=== PATIENT | male | born 1940 | race Caucasian/White ===

== ENCOUNTER 2016-10-28 09:30 | Emergency (ER) | payer OTHER ==
[2016-10-28] MEDS ORDERED: HYDROmorphONE/DILAUDID 1 MG/ML SYR IVP ONE (09:53)
[2016-10-28] MEDS ORDERED: ONDANSETRON 4 MG/2 ML VIAL IVP ONE (09:53)
[2016-10-28] MEDS ORDERED: NS 1,000 ML IV ONE (09:53)
--- NOTE | 2016-10-28 09:57 | EDPHY ---
H & P Stated Complaint: l flank pain Time Seen by Provider: 10/28/16 09:43 HPI/ROS: CHIEF COMPLAINT: Left flank pain HISTORY OF PRESENT ILLNESS: Patient is a 76-year-old man who comes to the emergency department complaining of left flank pain. He states that it has been intermittent for the last week. He has noticed some dark colored urination as well as testicle pain. 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 No nausea vomiting or abdominal pain. No diarrhea. No chest pain or shortness of breath. He thinks that he can feel a mass in the area. REVIEW OF SYSTEMS: Constitutional: denies: chills, fever, recent illness, recent injury EENTM: denies: blurred vision, double vision, nose congestion Respiratory: denies: cough, shortness of breath Cardiac: denies: chest pain, irregular heart rate, lightheadedness, palpitations Gastrointestinal/Abdominal: denies: abdominal pain, diarrhea, nausea, vomiting, blood streaked stools Genitourinary: denies: dysuria, frequency, hematuria, pain Musculoskeletal: See HPI Skin: denies: lesions, rash, jaundice, bruising Neurological: denies: headache, numbness, paresthesia, tingling, dizziness, weakness Hematologic/Lymphatic: denies: blood clots, easy bleeding, easy bruising Immunologic/allergic: denies: HIV/AIDS, transplant EXAM: GENERAL: Well-appearing, well-nourished and in no acute distress. HEAD: Atraumatic, normocephalic. EYES: Pupils equal round and reactive to light, extraocular movements intact, sclera anicteric, conjunctiva are normal. ENT: TMs normal, nares patent, oropharynx clear without exudates. Moist mucous membranes. NECK: Normal range of motion, supple without lymphadenopathy or JVD. LUNGS: Breath sounds clear to auscultation bilaterally and equal. No wheezes rales or rhonchi. HEART: Regular rate and rhythm without murmurs, rubs or gallops. ABDOMEN: Soft, nontender, normoactive bowel sounds. No guarding, no rebound. No masses appreciated. BACK: Mild CVA tenderness, no palpable masses. no spinal tenderness, step-offs or deformities EXTREMITIES: Normal range of motion, no pitting or edema. No clubbing or cyanosis. NEUROLOGICAL: Cranial nerves II through XII grossly intact. Normal speech, normal gait. 5/5 strength, normal movement in all extremities, normal sensation PSYCH: Normal mood, normal affect. SKIN: Warm, dry, normal turgor, no visible rashes or lesions. Source: Patient Exam Limitations: No limitations - Personal History Current Tetanus/Diphtheria Vaccine: Unsure Tetanus Vaccine Date: < 10 years - Medical/Surgical History Hx Asthma: No Hx Chronic Respiratory Disease: No Hx Diabetes: No Hx Cardiac Disease: Yes Hx Renal Disease: No Hx Cirrhosis: No Hx Alcoholism: No Hx HIV/AIDS: No Hx Splenectomy or Spleen Trauma: No Other PMH: murmur, R leg DVT, PEs Bilateral, CABG, AORTIC VALVE REPLACEMENT/l inguinal hernia - Family History Significant Family History: Hypertension - Social History Smoking Status: Never smoked Alcohol Use: Sober Drug Use: None Constitutional: Initial Vital Signs Temperature (C) 36.4 C 10/28/16 09:36 Heart Rate 78 10/28/16 09:36 Respiratory Rate 17 10/28/16 09:36 Blood Pressure 120/93 H 10/28/16 09:36 O2 Sat (%) 94 10/28/16 09:36 O2 Delivery Mode Room Air Allergies/Adverse Reactions: [id number] Reductase Inhibitor Allergy (Verified 10/28/16 09:33) statins Allergy (Uncoded 11/20/14 11:06) Home Medications: Medication Instructions Recorded Aspirin [Aspirin 81mg (*)] 81 mg PO DAILY 11/20/14 Omeprazole [Prilosec 20 mg] 20 mg PO DAILY 11/20/14 Warfarin Sodium [Coumadin 4MG (RX)] 4 mg PO Q2D 11/20/14 Warfarin Sodium [Coumadin 5MG (*)] 5 mg PO Q2D 11/20/14 Atorvastatin Calcium 01/15/16 Metoprolol Succinate 01/15/16 ALENDRONATE SODIUM 10/28/16 Tamsulosin HCl [Flomax] 0.4 mg PO DAILY #10 cap 10/28/16 Medical Decision Making - Diagnostics Imaging: Results: CT scan of the abdomen and pelvis was obtained. The results of the study are positive for 4 mm left UVJ stone. The study was read by Dr. Tsai. I viewed the images myself on the PACS system. ED Course/Re-evaluation: 12:00 p.m. the patient refused pain medication. He states that Tylenol is working well for him. We discussed the CT results and he is reassured. He is concerned for cancer. He declines further workup or testing at this time is eager to go home. We discussed precautions and indications for returning. His INR was slightly elevated. Differential Diagnosis: Partial list of the Differential diagnosis considered include but were not limited to; kidney stone, urinary tract infection and although unlikely based on the history and physical exam, I also considered aneurysm, dissection, tumor. I discussed these differential diagnoses and the plan with the patient as well as the usual and expected course. The patient understands that the diagnosis is provisional and that in medicine we are not always correct and that further workup is often warranted. Usual and customary warnings were given. All of the patient's questions were answered. The patient was instructed to return to the emergency department should the symptoms at all worsen or return, otherwise to followup with the physician as we discussed. - Data Points Laboratory Results: Laboratory Results 10/28/16 10:00 10/28/16 10:00 10/28/16 10:00 WBC 10.14 H 10^3/uL (3.80-9.50) RBC 5.54 10^6/uL (4.40-6.38) Hgb 15.0 g/dL (13.7-17.5) Hct 47.3 % (40.0-51.0) MCV 85.4 fL (81.5-99.8) MCH 27.1 L pg (27.9-34.1) MCHC 31.7 L g/dL (32.4-36.7) RDW 16.1 H % (11.5-15.2) Plt Count 209 10^3/uL (150-400) MPV 10.5 fL (8.7-11.7) Neut % (Auto) 76.0 H % (39.3-74.2) Lymph % (Auto) 13.4 L % (15.0-45.0) Floyd % (Auto) 7.9 % (4.5-13.0) Eos % (Auto) 2.0 % (0.6-7.6) Baso % (Auto) 0.3 % (0.3-1.7) Nucleat RBC Rel Count 0.0 % (0.0-0.2) Absolute Neuts (auto) 7.71 H 10^3/uL (1.70-6.50) Absolute Lymphs (auto) 1.36 10^3/uL (1.00-3.00) Absolute Monos (auto) 0.80 10^3/uL (0.30-0.80) Absolute Eos (auto) 0.20 10^3/uL (0.03-0.40) Absolute Basos (auto) 0.03 10^3/uL (0.02-0.10) Absolute Nucleated RBC 0.00 10^3/uL (0-0.01) Immature Gran % 0.4 % (0.0-1.1) Immature Gran # 0.04 10^3/uL (0.00-0.10) PT 36.7 H SEC (12.0-15.0) INR 3.62 H (0.83-1.16) APTT 40.5 H SEC (23.0-38.0) Sodium 142 mEq/L (134-144) Potassium 4.2 mEq/L (3.5-5.2) Chloride 106 mEq/L (97-110) Carbon Dioxide 25 mEq/l (22-31) Anion Gap 11 mEq/L (8-16) BUN 21 mg/dL (7-23) Creatinine 1.3 mg/dL (0.7-1.3) Estimated GFR 54 Glucose 112 H mg/dL (70-100) Calcium 8.8 mg/dL (8.5-10.4) Total Bilirubin 0.8 mg/dL (0.1-1.4) Conjugated Bilirubin 0.3 mg/dL (0.0-0.5) Unconjugated Bilirubin 0.5 mg/dL (0.0-1.1) AST 37 IU/L (17-59) ALT 32 IU/L (21-72) Alkaline Phosphatase 118 IU/L (38-126) Total Protein 7.1 g/dL (6.3-8.2) Albumin 3.5 g/dL (3.5-5.0) Lipase 82.0 IU/L (23-300) Medications Given: Discontinued Medications Hydromorphone HCl (Dilaudid) 0.5 mg IVP EDNOW ONE Stop: 10/28/16 09:54 Last Admin: 10/28/16 10:12 Dose: Not Given Sodium Chloride (Ns) 1,000 mls @ 0 mls/hr IV ONCE ONE PRN Reason: Wide Open Stop: 10/28/16 09:54 Last Admin: 10/28/16 10:07 Dose: 1,000 mls Ondansetron HCl (Zofran) 4 mg IVP EDNOW ONE Stop: 10/28/16 09:54 Last Admin: 10/28/16 10:14 Dose: Not Given Tamsulosin HCl (Flomax) 0.4 mg PO EDNOW ONE Stop: 10/28/16 12:05 Last Admin: 10/28/16 12:17 Dose: 0.4 mg Departure - Departure Disposition: Home, Routine, Self-Care Clinical Impression: Renal colic on left side Condition: Fair Instructions: Kidney Stones (ED) Referrals: Carlos Shah MD [Primary Care Provider] - As per Instructions Janet Simons MD [Medical Doctor] - As per Instructions Prescriptions: Tamsulosin HCl [Flomax] 0.4 mg PO DAILY #10 cap
[2016-10-28 10:15] LABS: % IMMATURE GRANULYOCYTES 0.4 % (0.0-1.1); ABSOLUTE IMMATURE GRANULOCYTES 0.04 10^3/uL (0.00-0.10); ADD DIFF? NO; ADD MORPH? NO; ADD SCAN? NO; ATYPICAL LYMPHOCYTE FLAG 10 (0-99); FRAGMENT RBC FLAG 0 (0-99); HEMATOCRIT 47.3 % (40.0-51.0); LEFT SHIFT FLG 0 (0-99); LIPEMIA HEMOLYSIS FLAG 80 (0-99); MEAN CELL HEMOGLOBIN 27.1 pg (27.9-34.1); MEAN CELL HEMOGLOBIN CONCENTR. 31.7 g/dL (32.4-36.7); MEAN CELL VOLUME 85.4 fL (81.5-99.8); MEAN PLATELET VOLUME 10.5 fL (8.7-11.7); PLATELET CLUMPS FLAG 10 (0-99); PLATELET COUNT 209 10^3/uL (150-400); RED BLOOD CELL COUNT 5.54 10^6/uL (4.40-6.38); RED CELL DISTRIBUTION WIDTH 16.1 % (11.5-15.2)
[2016-10-28 10:23] LABS: INR 3.62 (0.83-1.16); PROTIME(PATIENT) 36.7 SEC (12.0-15.0)
[2016-10-28 10:24] LABS: APTT 40.5 SEC (23.0-38.0)
[2016-10-28 10:35] LABS: ALANINE AMINOTRANSFERASE 32 IU/L (21-72); ALBUMIN 3.5 g/dL (3.5-5.0); ALKALINE PHOSPHATASE 118 IU/L (38-126); ANION GAP 11 mEq/L (8-16); ASPARTATE AMINOTRANSFERASE 37 IU/L (17-59); BILIRUBIN,TOTAL 0.8 mg/dL (0.1-1.4); BILIRUBIN-CONJUGATED 0.3 mg/dL (0.0-0.5); BILIRUBIN-UNCONJUGATED 0.5 mg/dL (0.0-1.1); CALCIUM 8.8 mg/dL (8.5-10.4); CARBON DIOXIDE 25 mEq/l (22-31); CHLORIDE 106 mEq/L (97-110); CREATININE 1.3 mg/dL (0.7-1.3); GLOMERULAR FILTRATION RATE 54; GLUCOSE 112 mg/dL (70-100); POTASSIUM 4.2 mEq/L (3.5-5.2); SODIUM 142 mEq/L (134-144); TOTAL PROTEIN 7.1 g/dL (6.3-8.2)
--- NOTE | 2016-10-28 11:43 | CT ---
CT Abdomen and Pelvis Without Contrast (Stone Protocol) History: Left flank pain x1 week, possible kidney stone., History of CABG surgery and inguinal hernia Technique: Ultrathin ultrafast [address] through the abdomen and pelvis without contrast. Dose reduction techniques were utilized. Comparison: None Findings: There is a 1.6 cm anterior exophytic lesion extending off the lower pole of the right kidne y that has average Hounsfield units of 0 and likely represents an incidental cyst. There is a 2.4 x 2 .1 hypodense round lesion in the upper pole of the left kidney with average Hounsfield units of -9, t hat likely represents an incidental cyst. There is nonobstructive left upper and mid pole nephrolithi asis. The left ureter is mildly dilated down to the urinary bladder where there is a 4 x 3.5 mm stone at the ureterovesical orifice. No other stones are seen in the urinary bladder. No stones are seen i n the right kidney or ureter. There is a 2.8 x 2.2 cm hypodense lesion in the lateral lower pole of t he right kidney and a similar 1.9 x 1.6 cm right renal lesion at the base of the posterior hilar lip, each of which have Hounsfield units of approximately 3 and -5 respectively, also likely representing incidental cysts. There are multiple compression abnormalities in the low thoracic and lumbar spine. Incidentally noted are calcified granulomas in the spleen, liver and lower jarrett, consistent with quiescent granulomatou s disease. Impression: 1. Obstructive distal left ureteral stone, with hydroureter but without hydronephrosis li lazaro to continuously pass. 2. Left nonobstructive nephrolithiasis. 3. Bilateral low density renal lesions, likely incidental cysts. If clinically indicated evaluation w ith ultrasound or postcontrast CT would be confirmatory. If there are any old outside imaging studies we would be happy to review them to assess for interval change. 4. Multiple low thoracic and lumbar compression abnormalities.? Osteoporosis. This patient might bene fit from a DEXA scan and pharmacologic intervention. Results communicated to Dr. Ventura via S[facility] Cox. Attention: This CT examination is specifically designed to evaluate patients who are clinically suspe cted of having acute obstructive uropathy. This examination does not use radiographic contrast, and as such, provides only a limited evaluation of the abdomen, pelvis and retroperitoneum. If there is further clinical suspicion for pathological conditions other than obstructive uropathy, a complete C T evaluation of the abdomen and pelvis utilizing intravenous, oral, and rectal contrast should be con sidered. General information for patients regarding this examination can be found at [email or web address]. If you have questions or comments about this report, please contact me at [phone] (hospital) or [phone] (cell).
[2016-10-28] MEDS ORDERED: TAMSULOSIN HCL 0.4 MG CAP PO ONE (12:04)
[2016-10-28 12:19] VITALS: BP 128/67; PULSE 82; RESP 18; TEMP 98.6; O2SAT 95
== END 2016-10-28 12:24 | disposition home or self-care (01) ==
DX: N23 Unspecified renal colic (principal); Z79.01 Long term (current) use of anticoagulants; Z79.82 Long term (current) use of aspirin; Z95.1 Presence of aortocoronary bypass graft

== ENCOUNTER 2018-04-20 17:04 | Emergency (ER) | payer OTHER ==
--- NOTE | 2018-04-20 18:23 | EDPHY ---
H & P Time Seen by Provider: 04/20/18 17:35 HPI/ROS: CHIEF COMPLAINT: Left ear bleeding HISTORY OF PRESENT ILLNESS: The patient is a 77-year-old male on warfarin who presents to the emergency department with left ear bleeding. Patient states he used a Q-tip in the ear roughly 3 times a week. He did not note any specific trauma. He was not using a Q-tip prior to the onset of his bleeding. He is working at the computer when he noticed blood draining from his ear. He has no pain. He has no change in his hearing. He has not changed his medication dose. No new medications. His last INR was therapeutic. REVIEW OF SYSTEMS: My complete review of systems is negative except as mentioned in the HPI. Past Medical/Surgical History: Includes DVT, PE, coronary artery disease Past surgical history: Includes aortic valve replacement, CABG, hernia repair Social history: Patient does not smoke Smoking Status: Never smoked Physical Exam: 36.7, 79, 18, 161/114, 96% on room air General Appearance: Alert and no distress. Head: Pupils equal. Normal. ENT: Patient has slight blood draining from his left ear. On exam his tympanic membrane is intact. There is a small mass at the base of the tympanic membrane in the external canal. This appears to be bleeding. Respiratory: No respiratory distress. Cardiac: regular rate and rhythm. Extremities: Full range of motion, normal appearing. Skin: No rashes or lesions. Neuro: Alert. Normal mood and affect. Constitutional: Initial Vital Signs Temperature (C) 36.7 C 04/20/18 17:09 Heart Rate 79 04/20/18 17:09 Respiratory Rate 18 04/20/18 17:09 Blood Pressure 161/114 H 04/20/18 17:09 O2 Sat (%) 96 04/20/18 17:09 O2 Delivery Mode Room Air Allergies/Adverse Reactions: Xrextku-Vjo-Hqc Reductase Inhibitor Allergy (Verified 04/20/18 17:08) statins Allergy (Uncoded 11/20/14 11:06) Home Medications: Medication Instructions Recorded Aspirin [Aspirin 81mg (*)] 81 mg PO DAILY 11/20/14 Omeprazole [Prilosec 20 mg] 20 mg PO DAILY 11/20/14 Warfarin Sodium [Coumadin 4MG (RX)] 4 mg PO Q2D 11/20/14 Warfarin Sodium [Coumadin 5MG (*)] 5 mg PO Q2D 11/20/14 Atorvastatin Calcium 01/15/16 Metoprolol Succinate 01/15/16 ALENDRONATE SODIUM 10/28/16 Tamsulosin HCl [Flomax] 0.4 mg PO DAILY #10 cap 10/28/16 Medical Decision Making ED Course/Re-evaluation: In the emergency department I discussed the findings with the patient. I answered all his questions. The patient had his ear irrigated and packed. He will follow up with ENT tomorrow. INR 1.99 I packed the patient's ear with gauze. Bleeding was controlled. He was given warnings prior to leaving. He will return with worsening symptoms. Differential Diagnosis: My differential includes but is not limited to coagulopathy, tympanic membrane rupture, external auditory canal injury, mass, malignancy, cholesteatoma - Data Points Laboratory Results: 04/20/18 18:42 PT 22.7 SEC H SEC (12.0-15.0) INR 1.99 H (0.83-1.16) APTT 33.4 SEC SEC (23.0-38.0) Departure - Departure Disposition: Home, Routine, Self-Care Clinical Impression: Bleeding from left ear Condition: Good Instructions: Otitis Externa (ED) Additional Instructions: You need to be evaluated by an early childhood education instructor. Keep the packing in place until evaluation. Return with increasing pain, uncontrolled bleeding, or any other concerns. Referrals: NELDA MCFADDEN [Other] - As per Instructions Rose Conde MD [Medical Doctor] - 1-2 days without fail
[2018-04-20 19:01] LABS: INR 1.99 (0.83-1.16); PROTIME(PATIENT) 22.7 SEC (12.0-15.0)
[2018-04-20 19:15] VITALS: BP 136/83
== END 2018-04-20 19:28 | disposition home or self-care (01) ==
DX: H92.22 Otorrhagia, left ear (principal); I25.810 Atherosclerosis of coronary artery bypass graft(s) without angina pectoris; Z79.01 Long term (current) use of anticoagulants; Z79.82 Long term (current) use of aspirin